=== PATIENT | male | born 1960 | race Caucasian/White ===

== ENCOUNTER 2020-05-23 11:22 | Observation (INO) ==
[2020-05-23] MEDS ORDERED: NORMAL SALINE 1,000 ML IV ONE (11:44)
--- NOTE | 2020-05-23 11:54 | ERNOTE ---
Medical Problem HPI - Narrative Date of Service: 05/23/20 - General Chief Complaint: General Assessment Time Seen by Provider: 05/23/20 11:28 Source: patient Exam Limitations: no limitations - Immun/Allergies/Home Medications Immunizations: IMMUNIZATION HX Immunizations Up to Date Yes History of Influenza Vaccine Yes Hx Pneumococcal Vaccination No Allergies/Adverse Reactions: Allergies mushroom Allergy (Intermediate, Verified 05/11/20 13:51) n/v, throat swelling Home Medications: HOME MEDICATIONS Aspirin [Aspirin Enteric Coated] 81 mg PO DAILY 05/25/16 [Last Taken 06/03/16] amLODIPine BESYLATE [Norvasc] 5 mg PO BID 05/25/16 [Last Taken 06/03/16] bupropion HCl 300 mg 24 hr tablet, extended release 300 mg PO QAM 07/28/18 [Last Taken Unknown] chlorthalidone 25 mg tablet 25 mg PO DAILY 07/29/18 [Last Taken Unknown] lorazepam 1 mg tablet 1 mg PO TID 07/29/18 [Last Taken Unknown] ropinirole 1 mg tablet 1 mg PO DAILY 07/29/18 [Last Taken Unknown] trazodone 100 mg tablet 100 mg PO DAILY 07/29/18 [Last Taken Unknown] lancets 28 gauge See Dose Instructions .ROUTE .MEDSUPPLY #300 ea 08/08/18 [Last Taken Unknown] metformin 1,000 mg tablet 1,000 mg PO BIDWM #180 tab 02/02/19 [Last Taken Unknown] brexpiprazole 2 mg tablet 2 mg PO DAILY 05/04/19 [Last Taken Unknown] venlafaxine 150 mg capsule,extended release 24 hr 225 mg PO DAILY cap 05/04/19 [Last Taken Unknown] insulin glargine 100 unit/mL (3 mL) subcutaneous pen 30 unit SUBCUT DAILY 90 Days #27 ml 11/03/19 [Last Taken Unknown] metoprolol tartrate 25 mg tablet 25 mg PO BID #180 tab 11/18/19 [Last Taken Unknown] blood-glucose meter See Rx Instructions .ROUTE .MEDSUPPLY #1 ea 11/23/19 [Last Taken Unknown] pen needle, diabetic 32 gauge x 5/32" See Dose Instructions .ROUTE .MEDSUPPLY #200 ea 12/08/19 [Last Taken Unknown] blood sugar diagnostic See Dose Instructions .ROUTE .MEDSUPPLY #300 ea 12/11/19 [Last Taken Unknown] CPAP supplies/tubing/pillows/mask/filter 0 .ROUTE .MEDSUPPLY #1 ea 05/03/20 [Last Taken Unknown] oxycodone-acetaminophen 5 mg-325 mg tablet 2 tab PO Q6H PRN #56 tab MDD 6 05/11/20 [Last Taken Unknown] Morphine Sulfate [Ms Contin] 15 mg PO BID #10 tablet.er 05/12/20 [Last Taken Unknown] - Pain Score Pain Score #1 Pain Score: 4 - History of Present History Narrative: The patient is a 59 year old male who presents for hallucinations which has been present for 1 week. There are associated symptoms of fatigue. The patient reports pain to left knee, 4/10. There are no alleviating factors. There are aggravating factors of activity. Previous treatments have included: Percocet with improvement. The past medical history includes: anxiety, DVT, DM, HTN, HLD, ROSEANN, Bipolar, TIA and RLS. The social history is negative. The patient has had no known ill contacts. Patient had positive COVID testing on 05/11/20 and then left knee sx on 05/12/20. Patient states that he has been having visual hallucinations without auditory involvement and has been intermittent for the past week. Patient states he has had decreased intake due to fatigue as well as poor activity associated with poor pain control. Patient states he just feels like he should have progressed further at this point then he has when compared to prior procedures. Patient states that over the past week he has had interval visual hallucinations of people typically present in open doorways that are not actually present, patient denies any auditory hallucinations. Patient states that his became concerned, since he has had hallucinations in the past, when he yelled out for his brother that was not present. Patient states he is unsure if he was previously sleeping when he yelled out for his brother. Patient denies any suicidal ideation or homicidal thoughts. Patient states he has been taking all previously prescribed medications as directed. Patient states he does consume alcohol but last intake was approximately 1 month ago, denies recreational drug use. Patient states he has fallen due to weakness but denies striking head, LOC or injury associated from fall, last time was over 1 week ago. Review of Systems - Review of Systems Constitutional: Present: recent illness, fatigue. Absent: fever, chills EYE: Present: no symptoms reported. Absent: vision changes ENT: Absent: ear pain, nasal drainage, sore throat Respiratory: Present: no symptoms reported. Absent: shortness of breath, cough Cardiology: Present: no symptoms reported. Absent: chest pain Gastrointestinal/Abdominal: Present: eating less, drinking less. Absent: nausea, vomiting, diarrhea, abdominal pain Genitourinary: Present: decreased urinary output. Absent: dysuria Skin: Present: no symptoms reported. Absent: rash Neurological: Present: no symptoms reported. Absent: headache, dizziness/light- headedness Psych: Present: other - visual hallucinations Medical History (Last Reviewed 05/23/20 @ 11:48 by GUCCI Ambrocio) Anxiety Bipolar 1 disorder, depressed Diabetes mellitus Onset Date: ~2008 type II Hyperlipidemia Onset Date: ~2004 Hypertension Onset Date: ~1994 Left knee DJD Onset Date: Unknown Obstructive sleep apnea Onset Date: ~1999 Restless legs syndrome (RLS) Onset Date: Unknown Sleep apnea Deep vein thrombophlebitis of right leg Onset Date: ~2008 Transient ischemic attack (TIA) Onset Date: ~2009 Surgical History: Surgical History (Last Reviewed 05/23/20 @ 11:48 by GUCCI Ambrocio) History of knee surgery Onset Date: Unknown 1979-collateral ligament. 1991, 2005-left medial meniscus. 2011-lateral meniscus. History of total knee arthroplasty Onset Date: ~12/07/15 [place]-right History of arthroscopic knee surgery Onset Date: Unknown 07/02/06 Dr Saravia-right. 08/23/11 Dr Pavon-right History of colonoscopy Onset Date: ~06/04/16 [facility]-normal. 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 [employer] Highest level of school completed/degree received: Bachelor's degree Service: No Tobacco: Smoking Status: Never smoker Alcohol: alcohol intake: current Dietary Habits: caffeine: No Pets: pets and animals: dog(s) Personal Safety: victim of physical abuse: No victim of emotional abuse: No Physical Exam - Physical Exam General Appearance: Present: wd/wn, alert, no apparent distress Head Exam: Present: normal inspection, no evidence of injury Eye Exam: Normal inspection: bilateral, PERRL: bilateral, EOMI: bilateral Ears, Nose, Throat: Present: dry mucous membranes Neck: Present: normal inspection Respiratory: Present: no respiratory distress, normal breath sounds, no accessory muscle use, lungs clear Cardiovascular/Chest: Present: regular rate, rhythm, no murmur Gastrointestinal/Abdominal: Present: normal bowel sounds, nontender, nondistended, soft, no organomegaly Extremity Exam: Present: no edema, decreased range of motion - pain with flexion of left knee, able to fully extend, calf tenderness, other - slight edema without erythema to left knee, surgical incisions noted to lateral and medial kn ee without drainage, sutures intact without surrounding erythema.. Absent: joint redness, joint swelling Neurological Exam: Present: alert, oriented, no motor/sensory deficits. Absent: normal mood/affect - flat Skin Exam: Present: normal color, warm/dry Progress - Date and Time Seen: Date and Time: 05/23/20 12:24 Radiology staff present to take patient for imaging, patient states he is to weak to stand, changed to portable exam. 05/23/20 15:01 Results of imaging discussed with , recommends Eliquis and patient has scheduled follow up with orthopedic clinic this week. Patient to take his prescribed medications for pain management. notified of patient presentation and results. After review of plan of care with patient he feels that he is unable to manage his pain at a level that he will be able to tolerate activity at home. Patient requesting admission for pain control as well as initiation of new medications. updated regarding patient condition and will admit for observation for IV hydration and pain control. 05/23/20 15:15 Initiation of oral Eliquis therapy for DVT, 10mg BID for 7 days then decrease to 5mg BID. - Results and Orders Patient's Lab Results:: I have reviewed the patient's lab results. - Vital Signs Patient's Vital Signs:: I have reviewed the patient's vital signs. Vital Signs: Vital Signs 05/23/20 11:23 05/23/20 11:29 Temperature 36.9 C 36.9 C Pulse Rate 104 H 104 H Respiratory Rate 20 20 Blood Pressure 163/99 H 163/99 H O2 Sat by Pulse Oximetry 99 99 - X-Ray X-Ray #1 X-Ray: chest Interpretation: Reviewed by me X-ray Comments: IMPRESSION: 1. BORDERLINE CARDIAC SIZE. 2. NO ACUTE CARDIOPULMONARY PROCESS. Electronically signed by Hermilo Gallo M.D.. - CT/Ultrasound CT/Ultrasound Narrative: IMPRESSION: 1. DEEP VENOUS THROMBOSIS INVOLVING THE POPLITEAL VEIN, PERONEAL VEIN, AND POSTERIOR TIBIAL VEIN WITH ADDITIONAL SMALL CLOTS IN THE COMMON FEMORAL AND FEMORAL VEIN . Electronically signed by Hermilo Gallo M.D.. - Progress/Reassessment Chief Complaint: General Assessment Departure Clinical Impression: Dehydration, Intractable pain DVT (deep venous thrombosis) Qualifiers: DVT location: lower extremity Affected thrombotic vein of extremity: other lower extremity vein Chronicity: acute Laterality: left Qualified Code(s): I82.492 - Acute embolism and thrombosis of other specified deep vein of left lower extremity - Departure Disposition: Still a patient Condition: Fair
[2020-05-23 11:56] LABS: Hematocrit 40.2 % (42.0-52.0); Hemoglobin 13.1 gm/dL (13.5-18.0); Mean Cell Volume 83.4 fl (78-100); Mean Corpuscular Hemoglobin 27.2 pg (27-31); Mean Corpuscular Hgb Conc 32.6 g/dl (32-36); Mean Platelet Volume 9.1 fl (8-11.3); Platelet Count 562 K/mm3 (150-450); Red Blood Count 4.82 M/mm3 (4.7-6.0); Red Cell Distribution Width 13.4 % (11.5-14.0)
[2020-05-23 11:57] LABS: ALT 19 U/L (19-67); AST 18 U/L (0-48); Albumin * 2.3 gm/dl (3.4-5.0); Alkaline Phosphatase * 110 U/L (50-170); Anion Gap 17.9 mmol/L (6.8-13.8); BUN/Creatinine Ratio 22.4 (9.0-21.6); Bilirubin, Total 1.4 mg/dL (0.0-1.1); Blood Urea Nitrogen 28 mg/dL (6-23); Ca. Corrected For Albumin 10.2 mg/dL (8.4-10.2); Calcium * 9.2 mg/dL (7.9-10.9); Carbon Dioxide 20.9 mmol/L (24-32.6); Chloride 97 mmol/L (97-106); Glucose * 252 mg/dL (70-110); Potassium 4.8 mmol/L (3.4-4.6); Sodium 131 mmol/L (132-142); Total Protein 7.2 gm/dL (6.2-8.2)
[2020-05-23 11:59] LABS: Total Cells Counted 100
[2020-05-23 12:08] LABS: CRP 23.3 mg/dL (0.0-0.9)
[2020-05-23 12:19] LABS: Atypical (Reactive) Lymph 1 % (0-2); Band 1 % (0-2.0); Lymphocyte 7 % (20-51); Monocyte 4 % (0-9); Neutrophil 87 % (42-75); Neutrophil # 13.9 K/mm3 (1.3-6.0); Platelet Estimate Increased (NORMAL)
[2020-05-23 12:20] LABS: Hypochromia Trace; Ovalocytes 1+
[2020-05-23 12:22] LABS: Prothrombin Time (Patient) 12.2 Seconds (9.1-10.7)
[2020-05-23 12:23] LABS: INR 1.24 INR (0.92-1.08); Partial Thrombolplastin Time 26.2 Seconds (24-32)
[2020-05-23] MEDS ORDERED: HYDROmorphone HCL 1 MG/ML DISP.SYRIN IV ONE (13:40)
[2020-05-23 14:34] LABS: Urine Bilirubin 1 mg/dl (NEGATIVE); Urine Blood Negative /ul (NEGATIVE); Urine Ketone Negative (NEGATIVE); Urine Nitrite Negative (NEGATIVE); Urine Protein Negative (NEGATIVE); Urine Specific Gravity >=1.030 SP.GR. (1.005-1.030); Urine Urobilinogen Normal (NORMAL); Urine pH 5.5 pH (5.0-7.0)
[2020-05-23 14:46] LABS: Cocaine Ur Negative (NEGATIVE); Urine Barbiturate Negative (NEGATIVE); Urine Benzodiazepines Negative (NEGATIVE); Urine Opiates Negative (NEGATIVE); Urine PCP Negative (NEGATIVE); Urine THC Negative (NEGATIVE)
[2020-05-23 15:00] LABS: Urine Appearance Clear (CLEAR); Urine Color Yellow
[2020-05-23 15:01] LABS: Urine Bacteria TRACE; Urine Fine Granular Cast 0-5 /LPF; Urine RBC TRACE /hpf (0-5); Urine WBC TRACE /hpf (0-5)
[2020-05-23] MEDS: APIXABAN 5 MG TABLET PO SCH ×2 (15:26→20:29)
[2020-05-23] MEDS ORDERED: HYDROmorphone HCL 2 MG TABLET PO PRN (17:28)
--- NOTE | 2020-05-23 17:58 | HP ---
Chief Complaint - Chief Complaint Date of Service: 05/23/20 Time of Service: 17:49 Chief Complaint: Left leg pain History of Present Illness: Kevin is a 59 yo male with recent history of COVID-19 and septic arthritis of left knee. He had been at home with worsening left knee and lower extremity pain, until he could not tolerate pain any further and presented to the [facility] ER. He reports episodes of confusion and visual hallucinations as well at home. He has had decreased oral intake due to loss of taste and smell. He is currently on MS contin 15mg BID and percocet for breakthrough pain following septic arthritis of left knee. HPI and ROS completed by review of records, patient resting and participates in limited conversation. Medical History (Last Reviewed 05/23/20 @ 16:54 by Silvia Alegria RN) Anxiety Bipolar 1 disorder, depressed Diabetes mellitus Onset Date: ~2008 type II Hyperlipidemia Onset Date: ~2004 Hypertension Onset Date: ~1994 Left knee DJD Onset Date: Unknown Obstructive sleep apnea Onset Date: ~1999 Restless legs syndrome (RLS) Onset Date: Unknown Sleep apnea Deep vein thrombophlebitis of right leg Onset Date: ~2008 Transient ischemic attack (TIA) Onset Date: ~2009 Surgical History: Surgical History (Last Reviewed 05/23/20 @ 16:54 by Silvia Alegria RN) History of knee surgery Onset Date: Unknown 1979-collateral ligament. 1991, 2005-left medial meniscus. 2011-lateral meniscus. History of total knee arthroplasty Onset Date: ~12/07/15 [place]-right History of arthroscopic knee surgery Onset Date: Unknown 07/02/06 Dr Saravia-right. 08/23/11 Dr Pavon-right History of colonoscopy Onset Date: ~06/04/16 Jon-normal. 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 [employer] Highest level of school completed/degree received: Bachelor's degree Service: No Tobacco: Smoking Status: Never smoker Alcohol: alcohol intake: current Dietary Habits: caffeine: No Pets: pets and animals: dog(s) Personal Safety: victim of physical abuse: No victim of emotional abuse: No Review Of Systems (GEN) - Review of Systems Generalized/Overall Review: Absent: Weakness, Chills, Fever EENTM: Present: No Symptoms Reported Respiratory: Absent: Cough, Shortness of Breath Cardiac: Absent: Chest Pain, Edema Abdominal: Absent: Nausea, Vomiting Genitourinary: Absent: Burning, Frequency Musculoskeletal: Present: Joint Pain, Muscle Pain Neurological: Present: Other - visual hallucinations. Absent: Headache Skin: Absent: Lesions, Change in Color Immunizations: IMMUNIZATION HX Immunizations Up to Date Yes History of Influenza Vaccine Yes Hx Pneumococcal Vaccination No Allergies/Adverse Reactions: Allergies Allergy/AdvReac Type Severity Reaction Status Date / Time mushroom Allergy Intermediate n/v, Verified 05/23/20 16:56 throat swelling Home Medications: HOME MEDICATIONS Aspirin [Aspirin Enteric Coated] 81 mg PO DAILY 05/25/16 [Last Taken 06/03/16] amLODIPine BESYLATE [Norvasc] 5 mg PO BID 05/25/16 [Last Taken 06/03/16] bupropion HCl 300 mg 24 hr tablet, extended release 300 mg PO QAM 07/28/18 [Last Taken Unknown] chlorthalidone 25 mg tablet 25 mg PO DAILY 07/29/18 [Last Taken Unknown] lorazepam 1 mg tablet 1 mg PO TID 07/29/18 [Last Taken Unknown] ropinirole 1 mg tablet 1 mg PO DAILY 07/29/18 [Last Taken Unknown] trazodone 100 mg tablet 100 mg PO DAILY 07/29/18 [Last Taken Unknown] lancets 28 gauge See Dose Instructions .ROUTE .MEDSUPPLY #300 ea 08/08/18 [Last Taken Unknown] metformin 1,000 mg tablet 1,000 mg PO BIDWM #180 tab 02/02/19 [Last Taken Unknown] brexpiprazole 2 mg tablet 2 mg PO DAILY 05/04/19 [Last Taken Unknown] venlafaxine 150 mg capsule,extended release 24 hr 225 mg PO DAILY cap 05/04/19 [Last Taken Unknown] insulin glargine 100 unit/mL (3 mL) subcutaneous pen 30 unit SUBCUT DAILY 90 Days #27 ml 11/03/19 [Last Taken Unknown] metoprolol tartrate 25 mg tablet 25 mg PO BID #180 tab 11/18/19 [Last Taken Unknown] blood-glucose meter See Rx Instructions .ROUTE .MEDSUPPLY #1 ea 11/23/19 [Last Taken Unknown] pen needle, diabetic 32 gauge x 5/32" See Dose Instructions .ROUTE .MEDSUPPLY #200 ea 12/08/19 [Last Taken Unknown] blood sugar diagnostic See Dose Instructions .ROUTE .MEDSUPPLY #300 ea 12/11/19 [Last Taken Unknown] CPAP supplies/tubing/pillows/mask/filter 0 .ROUTE .MEDSUPPLY #1 ea 05/03/20 [Last Taken Unknown] oxycodone-acetaminophen 5 mg-325 mg tablet 2 tab PO Q6H PRN #56 tab MDD 6 [Last Taken Unknown] Morphine Sulfate [Ms Contin] 15 mg PO BID #10 tablet.er 05/12/20 [Last Taken Unknown] Exam - Exam Vital Signs: Vital Signs - Last Taken Temp 37.5 C 05/23/20 16:58 Pulse 84 05/23/20 16:58 Resp 18 05/23/20 16:58 BP 157/98 H 05/23/20 16:58 Pulse Ox 92 L 05/23/20 16:58 Constitutional: Present: Somnolent Eye Exam: bilateral eye: normal inspection Respiratory: Present: lungs clear, normal breath sounds, no respiratory distress Cardiovascular/Chest: Present: regular rate, rhythm, no edema Abdomen: Present: Normal bowel sounds, soft, nontender, nondistended Extremity: Present: calf tenderness - left. Absent: lower extremity edema Skin Exam: Present: normal color, warm/dry, no cyanosis Diagnostic Studies: Abnormal Lab Results 05/23/20 05/23/20 05/23/20 Range/Units 11:37 11:37 12:12 WBC 16.0 H (4.0-10.5) K/mm3 Hgb 13.1 L (13.5-18.0) gm/dL Hct 40.2 L (42.0-52.0) % Plt Count 562 H (150-450) K/mm3 Neutrophils % (Manual) 87 H (42-75) % Lymphocytes % (Manual) 7 L (20-51) % Neutrophils # (Manual) 13.9 H (1.3-6.0) K/mm3 Lymphocytes # (Manual) 1.1 L (1.5-3.5) k/mm3 Platelet Estimate Increased H (NORMAL) PT (9.1-10.7) Seconds INR (Anticoag Therapy) (0.92-1.08) INR D-Dimer Greater than 10 H (0.19-0.49) ug/mL Sodium 131 L (132-142) mmol/L Potassium 4.8 H (3.4-4.6) mmol/L Carbon Dioxide 20.9 L (24-32.6) mmol/L Anion Gap 17.9 H (6.8-13.8) mmol/L BUN 28 H (6-23) mg/dL BUN/Creatinine Ratio 22.4 H (9.0-21.6) Random Glucose 252 H (70-110) mg/dL Total Bilirubin 1.4 H (0.0-1.1) mg/dL C-Reactive Prot, Quant 23.3 H (0.0-0.9) mg/dL Albumin 2.3 L (3.4-5.0) gm/dl Urine Glucose (UA) (NEGATIVE) mg/dL Urine Bilirubin (NEGATIVE) mg/dl Urine Ictotest (NEGATIVE) Fine Granular Casts (NONE) /LPF 05/23/20 05/23/20 Range/Units 12:12 14:25 WBC (4.0-10.5) K/mm3 Hgb (13.5-18.0) gm/dL Hct (42.0-52.0) % Plt Count (150-450) K/mm3 Neutrophils % (Manual) (42-75) % Lymphocytes % (Manual) (20-51) % Neutrophils # (Manual) (1.3-6.0) K/mm3 Lymphocytes # (Manual) (1.5-3.5) k/mm3 Platelet Estimate (NORMAL) PT 12.2 H (9.1-10.7) Seconds INR (Anticoag Therapy) 1.24 H (0.92-1.08) INR D-Dimer (0.19-0.49) ug/mL Sodium (132-142) mmol/L Potassium (3.4-4.6) mmol/L Carbon Dioxide (24-32.6) mmol/L Anion Gap (6.8-13.8) mmol/L BUN (6-23) mg/dL BUN/Creatinine Ratio (9.0-21.6) Random Glucose (70-110) mg/dL Total Bilirubin (0.0-1.1) mg/dL C-Reactive Prot, Quant (0.0-0.9) mg/dL Albumin (3.4-5.0) gm/dl Urine Glucose (UA) 100 H (NEGATIVE) mg/dL Urine Bilirubin 1 H (NEGATIVE) mg/dl Urine Ictotest Positive H (NEGATIVE) Fine Granular Casts 0-5 H (NONE) /LPF Laboratory Results WBC 16.0 K/mm3 (4.0-10.5) H 05/23/20 11:37 RBC 4.82 M/mm3 (4.7-6.0) 05/23/20 11:37 Hgb 13.1 gm/dL (13.5-18.0) L 05/23/20 11:37 Hct 40.2 % (42.0-52.0) L 05/23/20 11:37 MCV 83.4 fl (78-100) 05/23/20 11:37 MCH 27.2 pg (27-31) 05/23/20 11:37 MCHC 32.6 g/dl (32-36) 05/23/20 11:37 RDW 13.4 % (11.5-14.0) 05/23/20 11:37 Plt Count 562 K/mm3 (150-450) H 05/23/20 11:37 MPV 9.1 fl (8-11.3) 05/23/20 11:37 Neutrophils % (Manual) 87 % (42-75) H 05/23/20 11:37 Band Neuts % (Manual) 1 % (0-2.0) 05/23/20 11:37 Lymphocytes % (Manual) 7 % (20-51) L 05/23/20 11:37 Monocytes % (Manual) 4 % (0-9) 05/23/20 11:37 Neutrophils # (Manual) 13.9 K/mm3 (1.3-6.0) H 05/23/20 11:37 Lymphocytes # (Manual) 1.1 k/mm3 (1.5-3.5) L 05/23/20 11:37 Monocytes # (Manual) 0.6 k/mm3 (0.0-1.0) 05/23/20 11:37 Atypic/Reactive Lymphs 1 % (0-2) 05/23/20 11:37 Platelet Estimate Increased (NORMAL) H 05/23/20 11:37 Hypochromasia Trace 05/23/20 11:37 Ovalocytes 1+ 05/23/20 11:37 PT 12.2 Seconds (9.1-10.7) H 05/23/20 12:12 INR (Anticoag Therapy) 1.24 INR (0.92-1.08) H 05/23/20 12:12 PTT (Cam) 26.2 Seconds (24-32) 05/23/20 12:12 D-Dimer Greater than 10 ug/mL (0.19-0.49) H 05/23/20 12:12 Sodium 131 mmol/L (132-142) L 05/23/20 11:37 Plasma Sodium 133 mmol/L (130-142) 05/23/20 11:37 Potassium 4.8 mmol/L (3.4-4.6) H 05/23/20 11:37 Chloride 97 mmol/L (97-106) 05/23/20 11:37 Carbon Dioxide 20.9 mmol/L (24-32.6) L 05/23/20 11:37 Anion Gap 17.9 mmol/L (6.8-13.8) H 05/23/20 11:37 BUN 28 mg/dL (6-23) H 05/23/20 11:37 Creatinine 1.25 mg/dL (0.4-1.4) 05/23/20 11:37 Est GFR (Non-Af Amer) 63 mL/min (60-130) 05/23/20 11:37 BUN/Creatinine Ratio 22.4 (9.0-21.6) H 05/23/20 11:37 Random Glucose 252 mg/dL (70-110) H 05/23/20 11:37 Calcium 9.2 mg/dL (7.9-10.9) 05/23/20 11:37 Calcium Adj for Albumin 10.2 mg/dL (8.4-10.2) 05/23/20 11:37 Total Bilirubin 1.4 mg/dL (0.0-1.1) H 05/23/20 11:37 AST 18 U/L (0-48) 05/23/20 11:37 ALT 19 U/L (19-67) 05/23/20 11:37 Alkaline Phosphatase 110 U/L (50-170) 05/23/20 11:37 C-Reactive Prot, Quant 23.3 mg/dL (0.0-0.9) H 05/23/20 11:37 Total Protein 7.2 gm/dL (6.2-8.2) 05/23/20 11:37 Albumin 2.3 gm/dl (3.4-5.0) L 05/23/20 11:37 Urine Color Yellow 05/23/20 14:25 Urine Appearance Clear (CLEAR) 05/23/20 14:25 Urine pH 5.5 pH (5.0-7.0) 05/23/20 14:25 Ur Specific [place] >=1.030 SP.GR. (1.005-1.030) 05/23/20 14:25 Urine Protein Negative mg/dL (NEGATIVE) 05/23/20 14:25 Urine Glucose (UA) 100 mg/dL (NEGATIVE) H 05/23/20 14:25 Urine Ketones Negative mg/dL (NEGATIVE) 05/23/20 14:25 Urine Blood Negative /ul (NEGATIVE) 05/23/20 14:25 Urine Nitrate Negative (NEGATIVE) 05/23/20 14:25 Urine Bilirubin 1 mg/dl (NEGATIVE) H 05/23/20 14:25 Urine Ictotest Positive (NEGATIVE) H 05/23/20 14:25 Urine Urobilinogen Normal EU/dl (NORMAL) 05/23/20 14:25 Ur Leukocyte Esterase Negative /ul (NEGATIVE) 05/23/20 14:25 Urine RBC Trace /hpf (0-5) 05/23/20 14:25 Urine WBC Trace /hpf (0-5) 05/23/20 14:25 Ur Epithelial Cells 0-5 /hpf (0-5) 05/23/20 14:25 Urine Bacteria Trace (NONE) 05/23/20 14:25 Fine Granular Casts 0-5 /LPF (NONE) H 05/23/20 14:25 Urine Culture Comments No culture indicated 05/23/20 14:25 Urine Opiates Screen Negative (NEGATIVE) 05/23/20 14:25 Barbiturate Screen Negative (NEGATIVE) 05/23/20 14:25 Ur Phencyclidine Scrn Negative (NEGATIVE) 05/23/20 14:25 Urine Amphetamine Negative (NEGATIVE) 05/23/20 14:25 U Benzodiazepines Scrn Negative (NEGATIVE) 05/23/20 14:25 Urine Cocaine Screen Negative (NEGATIVE) 05/23/20 14:25 Urine Marijuana (THC) Negative (NEGATIVE) 05/23/20 14:25 Ethyl Alcohol Less than 3.0 mg/dL (0.0-10.0) 05/23/20 11:37 Assessment/Plan - Narrative Narrative: Kevin is a 59 yo male that will be admitted for pain control secondary to DVT in left lower extremity. Venous duplex of left leg shows multiple DVTs. He was at risk for DVT due to recent COVID as well as left knee septic arthritis and decreased mobility. He will be treated with eliquis for anticoagulation. He was previously on MS Contin and percocet for pain control, but having visual hallucinations that I suspect to be secondary to MS contin. Will discontinue MS Contin. Will treat pain with only prn medication for pain. Will admit to observation and plan to discharge to home tomorrow on prn pain control and eliquis. He is at the end of his course of COVID. He is not having symptoms of COVID, but I suspect COVID contributed to his DVT. His COVID infection is recent enough to keep in COVID precautions. - Assessment/Plan (1) DVT (deep venous thrombosis) Problem: Acute Qualifiers: DVT location: lower extremity Affected thrombotic vein of extremity: other lower extremity vein Chronicity: acute Laterality: left Qualified Code(s): I82.492 - Acute embolism and thrombosis of other specified deep vein of left lower extremity (2) COVID-19 Problem: Acute (3) Intractable pain Problem: Acute (4) Visual hallucination Problem: Acute
[2020-05-23] MEDS ORDERED: oxyCODONE HCL/ACETAMINOPHEN 1 TAB TABLET PO PRN (20:43)
[2020-05-23] MEDS ORDERED: APIXABAN 5 MG TABLET PO SCH (21:00)
[2020-05-23] MEDS ORDERED: MORPHINE SULFATE 15 MG TABLET.SA PO SCH (21:00)
[2020-05-23] MEDS: METOPROLOL TARTRATE 25 MG TABLET PO SCH (21:30)
[2020-05-23] MEDS: amLODIPine BESYLATE 5 MG TABLET PO SCH (21:30)
[2020-05-24 08:03] LABS: Hematocrit 38.6 % (42.0-52.0); Hemoglobin 12.1 gm/dL (13.5-18.0); Mean Corpuscular Hemoglobin 26.9 pg (27-31); Mean Corpuscular Hgb Conc 31.3 g/dl (32-36); Mean Platelet Volume 8.9 fl (8-11.3); Platelet Count 496 K/mm3 (150-450); Red Blood Count 4.49 M/mm3 (4.7-6.0); Red Cell Distribution Width 13.4 % (11.5-14.0); White Blood Count 13.2 K/mm3 (4.0-10.5)
[2020-05-24 08:07] LABS: Total Cells Counted 100
[2020-05-24 08:15] LABS: Albumin * 2.3 gm/dl (3.4-5.0); Anion Gap 13.2 mmol/L (6.8-13.8); BUN/Creatinine Ratio 21.7 (9.0-21.6); Bilirubin, Total 1.4 mg/dL (0.0-1.1); Ca. Corrected For Albumin 10.1 mg/dL (8.4-10.2); Calcium * 9.1 mg/dL (7.9-10.9); Carbon Dioxide 23.4 mmol/L (24-32.6); Potassium 4.6 mmol/L (3.4-4.6)
[2020-05-24 08:52] LABS: Band 1 % (0-2.0); Immature Granulocyte 2 (0-1); Lymphocyte 7 % (20-51); Monocyte 10 % (0-9); Neutrophil 80 % (42-75); Neutrophil # 10.6 K/mm3 (1.3-6.0)
[2020-05-24 08:53] LABS: Platelet Estimate Increased (NORMAL)
[2020-05-24 08:54] LABS: Hypochromia Trace; Polychromasia Trace
[2020-05-24] MEDS ORDERED: INSULIN GLARGINE,HUM.REC.ANLOG 100 UNITS/ML VIAL SC SCH (09:00)
[2020-05-24] MEDS ORDERED: traZODone HCL 50 MG TABLET PO SCH ×2 (09:00→21:00)
[2020-05-24] MEDS ORDERED: buPROPion HCL 150 MG TAB.SR.24H PO SCH (09:00)
[2020-05-24] MEDS ORDERED: VENLAFAXINE HCL 37.5 MG CAP.SR.24H PO SCH (09:00)
[2020-05-24] MEDS ORDERED: ASPIRIN 81 MG TABLET.DR PO SCH (09:00)
[2020-05-24] MEDS ORDERED: CHLORTHALIDONE 25 MG TABLET PO SCH (09:00)
[2020-05-24] MEDS ORDERED: rOPINIRole HCL 1 MG TABLET PO SCH (09:00)
[2020-05-24] MEDS ORDERED: VENLAFAXINE HCL 150 MG CAP.SR.24H PO SCH (09:00)
--- NOTE | 2020-05-24 09:18 | DS ---
(1) DVT (deep venous thrombosis) Problem: Acute Qualifiers: DVT location: lower extremity Affected thrombotic vein of extremity: other lower extremity vein Chronicity: acute Laterality: left Qualified Code(s): I82.492 - Acute embolism and thrombosis of other specified deep vein of left lower extremity (2) COVID-19 Problem: Acute (3) Intractable pain Problem: Resolved (4) Visual hallucination Problem: Resolved Date of Discharge:: 05/24/20 Hospital Course: Kevin is a 59 yo male with recent hx of COVID-19 and septic arthritis of left knee. He was having worsening pain in left leg and a venous duplex showed numerous DVT present. He was reporting uncontrolled pain and visual hallucinations. He was admitted to observation. His MS Contin was discontinued as I believe it was causing the hallucinations. He was started on Eliquis for anticoagulation and ordered dilaudid prn severe pain and percocet prn moderate pain. Overnight he did well and did not request any pain medications. He will be discharged to home today on eliquis. He admits to me that he had a DVT about 10 years ago, so there may be consideration for indefinite anticoagulation as this is his second episode. I will recommend he at least take Eliquis for 3 months and then he may discuss the skilled nursing need of this with his primary care physician. For pain he will continue to take percocet prn pain. MS Continin will not be restarted. During hospital course his pain was well controlled. Procedures Performed: none Results and Findings: Lab Pending Results 05/23/20 11:37: WBC 16.0 H, RBC 4.82, Hgb 13.1 L, Hct 40.2 L, MCV 83.4, MCH 27.2, MCHC 32.6, RDW 13.4, Plt Count 562 H, MPV 9.1, Neutrophils % (Manual) 87 H, Band Neuts % (Manual) 1, Lymphocytes % (Manual) 7 L, Monocytes % (Manual) 4, Neutrophils # (Manual) 13.9 H, Lymphocytes # (Manual) 1.1 L, Monocytes # (Manual) 0.6, Atypic/Reactive Lymphs 1, Platelet Estimate Increased H, Hypochromasia Trace, Ovalocytes 1+ 05/23/20 11:37: Sodium 131 L, Plasma Sodium 133, Potassium 4.8 H, Chloride 97, Carbon Dioxide 20.9 L, Anion Gap 17.9 H, BUN 28 H, Creatinine 1.25, Est GFR (Non-Af Amer) 63, BUN/Creatinine Ratio 22.4 H, Random Glucose 252 H, Calcium 9.2, Calcium Adj for Albumin 10.2, Total Bilirubin 1.4 H, AST 18, ALT 19, Alkaline Phosphatase 110, C-Reactive Prot, Quant 23.3 H, Total Protein 7.2, Albumin 2.3 L, Ethyl Alcohol Less than 3.0 05/23/20 12:12: D-Dimer Greater than 10 H 05/23/20 12:12: PT 12.2 H, INR (Anticoag Therapy) 1.24 H, PTT (Cam) 26.2 05/23/20 14:25: Urine Color Yellow, Urine Appearance Clear, Urine pH 5.5, Ur Specific [place] >=1.030, Urine Protein Negative, Urine Glucose (UA) 100 H, Uri ne Ketones Negative, Urine Blood Negative, Urine Nitrate Negative, Urine Bilirubin 1 H, Urine Ictotest Positive H, Urine Urobilinogen Normal, Ur Leukocyte Esterase Negative, Urine RBC Trace, Urine WBC Trace, Ur Epithelial Cells 0-5, Urine Bacteria Trace, Fine Granular Casts 0-5 H, Urine Culture Comments No culture indicated 05/23/20 14:25: Urine Opiates Screen Negative, Barbiturate Screen Negative, Ur Phencyclidine Scrn Negative, Urine Amphetamine Negative, U Benzodiazepines Scrn Negative, Urine Cocaine Screen Negative, Urine Marijuana (THC) Negative 05/24/20 07:53: WBC 13.2 H, RBC 4.49 L, Hgb 12.1 L, Hct 38.6 L, MCV 86.0, MCH 26.9 L, MCHC 31.3 L, RDW 13.4, Plt Count 496 H, MPV 8.9, Neutrophils % (Manual) 80 H, Band Neuts % (Manual) 1, Lymphocytes % (Manual) 7 L, Monocytes % (Manual) 10 H, Immature Granulocytes 2 H, Neutrophils # (Manual) 10.6 H, Lymphocytes # (Manual) 0.9 L, Monocytes # (Manual) 1.3 H, Platelet Estimate Increased H, Po lychromasia Trace, Hypochromasia Trace 05/24/20 07:53: Sodium 130 L, Plasma Sodium 132, Potassium 4.6, Chloride 98, Carbon Dioxide 23.4 L, Anion Gap 13.2, BUN 23, Creatinine 1.06, Est GFR (Non-Af Amer) 76 D, BUN/Creatinine Ratio 21.7 H, Random Glucose 195 H, Calcium 9.1, Calcium Adj for Albumin 10.1, Total Bilirubin 1.4 H, AST 16, ALT 19, Alkaline Phosphatase 112, Total Protein 7.0, Albumin 2.3 L Discharge Location: Home Disposition: Home self-care Condition: Fair Discharge Activity: Activity as tolerated Discharge Diet: Consistent carbs Referrals: Silviano Ashton DO [Primary Care Provider] - One Week Problem Oriented Discharge Instructions to Patient/Family: Deep Vein Thrombosis Prescriptions (Any new or edited meds): Apixaban [Eliquis] 10 mg PO BID #60 tab Transmission Status: Received by [place] Apixaban [Eliquis] 10 mg PO BID #60 tab Complete Home Medications List: Complete Home Medication List: Aspirin [Aspirin Enteric Coated] 81 mg PO DAILY 05/25/16 amLODIPine BESYLATE [Norvasc] 5 mg PO BID 05/25/16 bupropion HCl 300 mg 24 hr tablet, extended release 300 mg PO QAM 07/28/18 chlorthalidone 25 mg tablet 25 mg PO DAILY 07/29/18 lorazepam 1 mg tablet 1 mg PO TID 07/29/18 ropinirole 1 mg tablet 1 mg PO DAILY 07/29/18 trazodone 100 mg tablet 100 mg PO DAILY 07/29/18 lancets 28 gauge See Dose Instructions .ROUTE .MEDSUPPLY #300 ea 08/08/18 metformin 1,000 mg tablet 1,000 mg PO BIDWM #180 tab 02/02/19 brexpiprazole 2 mg tablet 2 mg PO DAILY 05/04/19 venlafaxine 150 mg capsule,extended release 24 hr 225 mg PO DAILY cap 05/04/19 insulin glargine 100 unit/mL (3 mL) subcutaneous pen 30 unit SUBCUT DAILY 90 Days #27 ml 11/03/19 metoprolol tartrate 25 mg tablet 25 mg PO BID #180 tab 11/18/19 blood-glucose meter See Rx Instructions .ROUTE .MEDSUPPLY #1 ea 11/23/19 pen needle, diabetic 32 gauge x " See Dose Instructions .ROUTE .MEDSUPPLY #200 ea 12/08/19 blood sugar diagnostic See Dose Instructions .ROUTE .MEDSUPPLY #300 ea 12/11/19 CPAP supplies/tubing/pillows/mask/filter 0 .ROUTE .MEDSUPPLY #1 ea 05/03/20 Apixaban [Eliquis] 10 mg PO BID #60 tab 05/24/20 Apixaban [Eliquis] 10 mg PO BID #60 tab 05/24/20 Forms: Patient Portal Registration
[2020-05-24] MEDS: APIXABAN 5 MG TABLET PO SCH (10:02)
[2020-05-24] MEDS: LORazepam 1 MG TABLET PO SCH ×2 (10:02→12:10)
[2020-05-24] MEDS: METOPROLOL TARTRATE 25 MG TABLET PO SCH (10:03)
[2020-05-24] MEDS: amLODIPine BESYLATE 5 MG TABLET PO SCH (10:06)
[2020-05-24 17:22] VITALS: BP 142/82
== END 2020-05-24 16:30 | disposition home or self-care (01) ==
LOC: ER 11:22 → MS 11:22
PROVIDERS: ADMIT Family Medicine; ATTEND Family Medicine